=== PATIENT | male | born 1940 | race Caucasian/White ===

== ENCOUNTER 2018-07-17 06:25 | Day surgery (SDC) | payer MEDICARE ==
[~2018-07-17] VITALS: Ht 188 cm; Wt 105.2 kg
[~2018-07-17 06:25] MED LIST: ADULT LOW DOSE81 MG PO; AMLODIPINE BESY10 MG PO; ATENOLOL50 MG PO; ATORVASTATIN CA10 MG PO; BENICAR40 MG PO; METFORMIN HCL500 M1 PO; MULTI VITAMIN1 EACH PO; PREVACID30 MG PO; TAMSULOSIN HCL0.4 MG PO
--- NOTE | 2018-07-17 08:24 | NUR ---
07/17/18 0824 Meenakshi Garcia 0815 PT ARRIVED IN PACU SLEEPY WITH NO C/O'S. ABD SOFT.
--- NOTE | 2018-07-17 11:36 | NUR ---
CONNECTED WITH PT'S JEY. SHE SEEMED CALM, INFORMED AND HAD FEW QUESTIONS. RATHER ROUTINE, WAS THE WAS SHE WAS VIEWING THE SCOPE TODAY. I THEN EXTENDED A BLESSING, WILL FOLLOW NEEDED
--- NOTE | 2018-07-18 07:31 | OR ---
[facility] [address] [place], [place] [address] Signed DATE OF OPERATION: 07/17/2018 SURGEON: Deidra Vale MD PREOPERATIVE DIAGNOSIS: History of tubular adenomas 2017, otherwise asymptomatic. POSTOPERATIVE DIAGNOSES: Sessile 1 cm polyp right transverse colon and hyperplastic appearing mucosa of the ileocecal valve (biopsied). PROCEDURES: Total colonoscopy to cecum with cold snare polypectomy x1 with hemoclip application and cold biopsies of ileocecal valve. ANESTHESIA: Intravenous sedation fentanyl 150 mcg, Versed 6 mg. INDICATIONS: A 77-year-old white man, a patient of Troy Licona PA-C, who underwent colonoscopy by mn in 2016, at which point he had two tubular adenomas excised. He remains asymptomatic. He is here for surveillance colonoscopy based on characteristics of prior polypectomy. He understands the risks of bleeding, infection, and perforation related to colonoscopy and wish to proceed. FINDINGS: The prep was good. Some irrigation was required for some liquid stool, however. Complete colonoscopy was undertaken. The ileocecal valve had a hyperplastic appearing surface to it. It was biopsied. There was a small 1 cm sessile polyp of the right transverse colon, which was excised with cold snare polypectomy technique. As there was a small amount of persistent bleeding from the site, application of hemoclips was undertaken. Remaining colon was normal. DESCRIPTION OF PROCEDURE: The patient was brought to the endoscopy suite and placed in lateral decubitus position, given intravenous sedation to the point of slurred speech and nystagmus. Full cardiopulmonary monitoring was maintained. Digital rectal examination was normal. An Olympus video colonoscope was passed in the rectum and manipulated throughout the colon. In the right transverse colon, a sessile polyp was noted. It was less than a Electronically Signed By: DEIDRA VALE MD 07/18/18 0731 PATIENT NAME: ARDEN PENN JR OPERATIVE REPORT DATE OF : 44 REPORT #: [id number] PHYSICIAN: DEIDRA VALE MD PCP: TROY LICONA REPORT IS CONFIDENTIAL AND NOT TO BE RELEASED WITHOUT AUTHORIZATION [facility] [address] [place], [place] [address] Signed centimeter in size, a large enough that snare polypectomy would be needed. This was accomplished with cold snare polypectomy technique. There was a small amount of bleeding at the site, which was disregarded at this time. The scope was then advanced further to the right colon ultimately to visualize the cecum. The ileocecal valve had a redundant appearance and possibly hyperplastic changes. Narrow band imaging was undertaken, which did not define the mucosa much better than that. Biopsies were taken of the mucosa. The scope was then withdrawn. Upon withdrawal of scope through the right colon and hepatic flexure, the polypectomy site of the right transverse colon was once again identified. There was no active significant bleeding, however, just enough blood in the area with irrigation. It was considered volume of bleeding and on that basis application of hemoclips were undertaken. Complete hemostasis was then assured. The scope was withdrawn further and the remaining colon was normal. Retroflexed view was normal of the rectum. The patient was taken to recovery room in good condition. CONCLUDING DIAGNOSES: 1. Polyp of right transverse colon, completely excised. 2. Unusual and hyperplastic appearing ileocecal valve, biopsied. PLAN: Repeat in 3 years unless the ileocecal valve biopsy shows adenomatous changes in which case, repeat in 1 year or less would be appropriate. MD MARTHA Greene/EMETERIOL /[id number] cc: VÍCTOR Cortez Copies: TROY LICONA ~ Electronically Signed By: DEIDRA VALE MD 07/18/18 0731 PATIENT NAME: ARDEN PENN JR OPERATIVE REPORT DATE OF : 44 REPORT #: [id number] PHYSICIAN: DEIDRA VALE MD PCP: TROY LICONA REPORT IS CONFIDENTIAL AND NOT TO BE RELEASED WITHOUT AUTHORIZATION
== END 2018-07-17 08:52 | disposition home or self-care (01) ==
LOC: DS 06:25 → OPS 06:25 → DS 06:45 → OPS 08:52
PROVIDERS: Surgery
PROC: 0DBL8ZZ Excision of Transverse Colon, Via Natural or Artificial Opening Endoscopic (ICD-10-PCS; 2018-07-17)
PROC: 0DBC8ZZ Excision of Ileocecal Valve, Via Natural or Artificial Opening Endoscopic (ICD-10-PCS; principal; 2018-07-17 06:45)
DX: Z12.11 Encounter for screening for malignant neoplasm of colon (principal); D12.3 Benign neoplasm of transverse colon; I10 Essential (primary) hypertension; Z86.010 Personal history of colon polyps; Z88.8 Allergy status to other drugs, medicaments and biological substances
CPT/HCPCS: 99153; G0500; J2250; J3010; J7120

== ENCOUNTER 2022-03-18 11:20 | Day surgery (SDC) | payer MEDICARE, OTHER ==
[~2022-03-18] VITALS: Ht 188 cm; Wt 105.5 kg
--- NOTE | ~2022-03-18 | OR ---
[facility] [address] [place], [place] [address] Draft DATE OF OPERATION: 03/18/2022 SURGEON: Deidra Vale MD PREOPERATIVE DIAGNOSIS: History of tubular adenoma, transverse colon 2018. POSTOPERATIVE DIAGNOSES: 1. Sessile polyp of right transverse colon (excised). 2. Multiple hyperplastic polyps of the rectosigmoid. 3. Diverticular changes of the sigmoid and left colon. PROCEDURE: Total colonoscopy to cecum with cold snare polypectomy x1 and cold morcellation polypectomy x5. ANESTHESIA: Intravenous sedation; fentanyl 100 mcg and Versed 7 mg. INDICATION: This 81-year-old white man is a patient of VÍCTOR Luke. He underwent colonoscopy by me in 2018, at which time he was found to have a transverse colon adenoma, which was excised. He is currently symptom free and having no bleeding, diarrhea, or constipation. He has no family history of colon cancer. He is admitted to undergo surveillance colonoscopy, understand the risks of bleeding, infection, and perforation. FINDINGS: The prep was excellent. Complete colonoscopy was undertaken to the cecum without question. Passage to the sigmoid was challenging due to extreme and extensive diverticular changes, but was accomplished safely. The ileocecal valve and appendiceal orifice were noted. There was a small sessile polyp of the right transverse colon, which was excised with cold snare polypectomy technique. There were numerous small hyperplastic polyps of the rectosigmoid which were excised with cold morcellation technique. There were no other findings of concern. PROCEDURE: The patient was brought to the endoscopy suite and placed in lateral decubitus position, given intravenous sedation to the point of slurred speech and nystagmus with full cardiopulmonary monitoring. PATIENT NAME: ARDEN PENN JR OPERATIVE REPORT DATE OF : 44 REPORT #: [id number] PHYSICIAN: DEIDRA VALE MD PCP: TROY ÁLVAREZ PA-C REPORT IS CONFIDENTIAL AND NOT TO BE RELEASED WITHOUT AUTHORIZATION [facility] [address] [place], [place] [address] Draft Digital rectal examination was found to be normal. An Olympus video colonoscope was passed in the rectum and manipulated throughout the colon. The sigmoid and left colon were somewhat difficult to negotiate based on the diverticulosis, but once past the sigmoid safely, the scope was advanced readily to the cecum. The ileocecal valve and appendiceal orifice were normal. Scope was withdrawn from that point. In the proximal transverse colon, there was a small sessile polyp behind a fold. This was excised with cold snare technique and passed for pathology. Further withdrawal of scope confirmed multiple diverticula of the left colon and sigmoid and at the rectosigmoid, multiple small hyperplastic appearing polyps. These were all excised with cold morcellation technique and passed in the same container. The rectum itself had no other abnormalities. The retroflexed view was normal. Scope was removed and the patient was taken recovery room in good condition. CONCLUSION DIAGNOSES: 1. Adenomatous polyp right transverse colon and multiple hyperplastic polyps rectosigmoid. 2. Diverticulosis. PLAN: Recommend high-fiber diet. Repeat colonoscopy in 5 years if clinically appropriate based on his advanced age at that time of 86 years, sooner if clinically indicated. He will return to the ongoing care of VÍCTOR Luke. Deidra Vale MD JM/MODL /[id number] cc: PA. Marly Copies: PATIENT NAME: ISAMARARDENIlya GILBERT OPERATIVE REPORT DATE OF : 44 REPORT #: [id number] PHYSICIAN: DEIDRA VALE MD PCP: TROY ÁLVAREZ PA-C REPORT IS CONFIDENTIAL AND NOT TO BE RELEASED WITHOUT AUTHORIZATION [address] [address] Draft ~ PATIENT NAME: ISAMARARDENIlya GILBERT OPERATIVE REPORT DATE OF : 44 REPORT #: [id number] PHYSICIAN: DEIDRA VALE MD PCP: TROY ÁLVAREZ PA-C REPORT IS CONFIDENTIAL AND NOT TO BE RELEASED WITHOUT AUTHORIZATION
--- NOTE | 2022-03-18 12:49 | NUR ---
03/18/22 Radha Yuen 1243 PT ARRVIED TO PACU ON 2L VIA NC, VSS. PT WAKES EASILY AND DENIES PAIN. PT REORIENTED TO PACU.
--- NOTE | 2022-03-19 18:23 | PATH ---
[facility] [address] [place], [place] [address] Signed SPECIMEN(S): A TRANSVERSE COLON POLYP SPECIMEN(S): B MULTIPLE RECTOSIGMOID COLON POLYPS SPECIMEN SOURCE: A. TRANSVERSE COLON POLYP B. MULTIPLE RECTOSIGMOID COLON POLYPS CLINICAL HISTORY: Colonoscopy. History of tubular adenoma. Postop: Adenomatous polyp of transverse colon, hyperplastic polyps of rectum, diverticulosis. FINAL PATHOLOGIC DIAGNOSIS: A. Colon, proximal transverse, polyp, polypectomy: - Fragments of tubular adenoma. - Negative for high-grade dysplasia or malignancy. B. Colon, rectosigmoid, multiple polyps, polypectomies: - Fragments of hyperplastic polyp(s). - Fragments of colonic mucosa with mild hyperplastic mucosal changes. - Negative for dysplasia or malignancy. COMMENT: Regarding specimen B: Multiple additional deeper levels were examined. NAL:cml:C2NR MICROSCOPIC EXAMINATION: Histologic sections of all submitted blocks are examined by light microscopy. These findings, together with the gross examination, support the pathologic diagnosis. GROSS DESCRIPTION: Two specimens are received in two containers labeled with "ER." A. The specimen, labeled "ER, 1," and designated on the requisition "proximal transverse polypectomy," is received in formalin and consists of two fragments of pink-hernandez tissue (0.2 cm in greatest dimension). The specimen is submitted entirely in cassette (A1). B. The specimen, labeled "ER, 2," and designated on the requisition "multiple rectosigmoid colon polyps," is received in formalin and consists of seven fragments of pink-hernandez tissue (0.1-0.3 cm in greatest dimension). The specimen is submitted entirely in cassette (B1). AC (under the direct supervision of a pathologist) The Gross Description was prepared using a voice recognition system. The report PATIENT NAME: ARDEN PENN JR PATHOLOGY DATE OF : 44 REPORT #: [id number] PHYSICIAN: JENNIFER ONOFRE PCP: TROY ÁLVAREZ PA-C REPORT IS CONFIDENTIAL AND NOT TO BE RELEASED WITHOUT AUTHORIZATION [facility] [address] [place], [place] [address] Signed was reviewed for accuracy; however, sound-alike word errors, addition and/or deletions may occur. If there is any question about this report, please contact Client Services. PERFORMING LABORATORY: The technical component was performed by [facility] [address] (CLIA# [id number]). Professional interpretation was performed by [email or web address], [address] [address] (CLIA# [id number]). Diagnostician: Sarai Rodriguez MD Pathologist Electronically Signed 03/19/2022 Copies: ~ PATIENT NAME: ARDEN PENN JR PATHOLOGY DATE OF : 44 REPORT #: [id number] PHYSICIAN: JENNIFER PATHOLOGY PCP: TROY ÁLVAREZ PA-C REPORT IS CONFIDENTIAL AND NOT TO BE RELEASED WITHOUT AUTHORIZATION
== END 2022-03-18 13:28 | disposition home or self-care (01) ==
LOC: OPS 11:20 → DS 11:24 → OPS 12:45 → DS 14:00
PROVIDERS: ATTEND Surgery
PROC: 0DBP8ZX Excision of Rectum, Via Natural or Artificial Opening Endoscopic, Diagnostic (ICD-10-PCS; 2022-03-18)
PROC: 0DBL8ZX Excision of Transverse Colon, Via Natural or Artificial Opening Endoscopic, Diagnostic (ICD-10-PCS; principal; 2022-03-18 12:45)
DX: Z12.11 Encounter for screening for malignant neoplasm of colon (principal); D12.3 Benign neoplasm of transverse colon; Z87.19 Personal history of other diseases of the digestive system; K21.9 Gastro-esophageal reflux disease without esophagitis; I10 Essential (primary) hypertension; Z85.46 Personal history of malignant neoplasm of prostate; Z85.89 Personal history of malignant neoplasm of other organs and systems; Z90.49 Acquired absence of other specified parts of digestive tract; Z88.8 Allergy status to other drugs, medicaments and biological substances
CPT/HCPCS: 99153; G0500; J2250; J3010; J7121

== ENCOUNTER 2025-03-08 09:51 | Emergency (ER) | payer MEDICARE, OTHER ==
[~2025-03-08] VITALS: Ht 188 cm; Wt 111.0 kg
[2025-03-08 10:12] LABS: BASOPHILS 0.7 % (0-2); HEMATOCRIT 45.2 % (35.0-50.0); HEMOGLOBIN 15.9 g/dL (12.0-18.0); LYMPHOCYTES 19.1 % (24-44); MCH 30.9 (27-36); MCV 88.2 fl (81-99); MONOCYTES 10.7 % (0-12); NEUTROPHILS 67.5 % (39-80); PLATELET COUNT 94 K/uL (140-440); RBC 5.13 M/ul (4.3-5.7); RDW 13.6 (10.5-15.0)
[2025-03-08] MEDS ORDERED: ASPIRIN 81 MG CHEW PO ONE (10:15)
[2025-03-08 10:25] LABS: INR 1.1 (0.80-1.30); PROTIME 13.5 Sec (11.2-14.2)
[2025-03-08 10:36] LABS: ALBUMIN 4.1 g/dL (3.4-5.0); ALBUMIN/GLOBULIN RATIO 1.21 (1.1-2.4); ANION GAP 10.2 (7-21); BUN/CREATININE RATIO 10.21 (6.0-28.6); CALCIUM 9.5 mg/dL (8.5-10.1); CREATININE, SERUM 1.37 mg/dL (0.70-1.30); POTASSIUM 4.2 mmol/L (3.5-5.1); PROTEIN, TOTAL 7.5 g/dL (6.4-8.2)
[2025-03-08] MEDS ORDERED: HEParin SOD (PORCINE) 5,000 UNIT/ML VIAL IV ONE (10:45)
[2025-03-08] MEDS ORDERED: HEPARIN SOD,PORK IN 0.45% NACL 500 ML IV SCH (10:45)
[2025-03-08 12:50] VITALS: BP 152/96
--- NOTE | 2025-03-09 14:40 | EKG ---
[facility] [address] [facility] [place] [address] Signed Atrial flutter Abnormal ECG No previous ECGs available Confirmed by Kelvin Garcia MD () on 03/09/2025 2:40:00 PM Electronically Signed By: KELVIN GARCIA MD 03/09/25 1440 PATIENT NAME: ARDEN PENN Electrocardiogram DATE OF : 44 PHYSICIAN: KELVIN GARCIA MD REPORT #: [id number] REPORT IS CONFIDENTIAL AND NOT TO BE RELEASED WITHOUT AUTHORIZATION
== END 2025-03-08 12:50 | disposition short-term general hospital (02) ==
LOC: ED 09:51
PROVIDERS: Emergency Medicine
DX: I48.92 Unspecified atrial flutter (principal); R00.1 Bradycardia, unspecified; I10 Essential (primary) hypertension; E11.9 Type 2 diabetes mellitus without complications; N40.0 Benign prostatic hyperplasia without lower urinary tract symptoms; E78.00 Pure hypercholesterolemia, unspecified; K21.9 Gastro-esophageal reflux disease without esophagitis; Z88.8 Allergy status to other drugs, medicaments and biological substances; Z79.84 Long term (current) use of oral hypoglycemic drugs; Z79.899 Other long term (current) drug therapy
CPT/HCPCS: 36415; 71045; 80053; 83735; 83880; 84484; 85025; 85610; 93005; 93010; 96374; 99285-25; A9270; J1644